=== PATIENT | male | born 2000 | race Two or more races ===

== ENCOUNTER 2020-10-11 07:05 | Emergency (ER) | payer SELFPAY ==
--- NOTE | ~2020-10-11 | CT_ITS ---
EXAMINATION: CT ABDOMEN AND PELVIS WITHOUT CONTRAST CLINICAL INFORMATION: Lower abdominal pain COMPARISON: None TECHNIQUE: Multidetector volumetric imaging was performed from the superior aspect of the liver through the pubic symphysis. Sagittal and coronal reformatted images were obtained on the technologist's workstation. This CT examination was performed using dose optimization techniques as appropriate, variously including the following: *Automated exposure control *Adjustment of mA and/or kV according to patient size (this includes techniques or standardized protocols for targeted exams where dose is matched to indication/reason for exam; i.e. extremities or head) *Use of iterative reconstruction technique DLP: 779 mGy-cm FINDINGS: LUNG BASES: The visualized lung bases are unremarkable. LIVER, GALLBLADDER, AND BILIARY TREE: The liver is normal in size, shape, and attenuation. No focal hepatic lesion or biliary ductal dilatation is present. The gallbladder is unremarkable with no evidence of radiopaque gallstones, gallbladder wall thickening, or obvious pericholecystic inflammatory changes. PANCREAS: Unremarkable. SPLEEN: Unremarkable. ADRENAL GLANDS: Unremarkable. KIDNEYS AND URETERS: The kidneys are normal in size, shape, and attenuation. No hydronephrosis, hydroureter, or calculi seen. No perinephric stranding. BLADDER: Unremarkable. GASTROINTESTINAL TRACT: Stomach is partially distended. No dilated small or large bowel loops. Nonobstructive bowel gas pattern. No evidence of colonic wall thickening or pericolonic inflammatory changes. Status post appendectomy. No free fluid or free air. ABDOMINAL WALL: No significant hernia is appreciated. LYMPH NODES: No enlarged lymph nodes seen. VASCULAR: Normal caliber aorta. PELVIC VISCERA: Within normal limits. OSSEOUS STRUCTURES: Minimal degenerative changes in the spine. CT/CT abdomen pelvis wo con IMPRESSION: No acute process is identified in the abdomen or pelvis. Cause of patient's symptoms is not evident by CT.
[2020-10-11 07:13] VITALS: BP 126/59; PULSE 80; RESP 20; TEMP 36.8; O2SAT 99; BMI 37.5
--- NOTE | 2020-10-11 07:38 | ED.ABDPAIN ---
HPI - Abdominal Pain General Chief Complaint: Abdominal Pain Stated Complaint: CONSTIPATION Time Seen by Provider: 10/11/20 07:26 Source: patient Mode of arrival: ambulatory Limitations: no limitations History of Present Illness HPI narrative: 20-year-old male history of ulcerative colitis came in for evaluation of lower abdominal pain. Lower abdominal pain started 2 days ago, describes the pain as intermittent, moderate in severity 7/10, pain mostly localized to the left lower abdomen, dull aching abdominal pain, no relieving or aggravating factor, pain is associated with diarrhea dark stool patient's think could be blood, also associated with nausea and vomiting. Patient had similar symptoms in the past when he was diagnosed with ulcerative colitis. Patient had history of appendectomy. Related Data Allergies Allergy/AdvReac Type Severity Reaction Status Date / Time No Known Allergies Allergy Verified 10/11/20 07:26 Review of Systems Review of Systems All other systems are reviewed and are negative Constitutional: Reports as per HPI and Reports no additional constitutional complaints Eyes: Reports as per HPI and Reports no additional eye complaints Reports system reviewed and no additional complaints, except as documented Cardiovascular: Reports as per HPI and Reports no additional cardiovascular complaints Respiratory: Reports as per HPI and Reports no additional respiratory complaints Gastrointestinal: Reports as per HPI and Reports no additional gastrointestinal complaints Genitourinary: Reports no additional female genitourinary complaints Musculoskeletal: Reports no additional musculoskeletal complaints Skin/Breast: Reports system reviewed and no additional complaints, except as docu Psychiatric: Reports no additional psychiatric complaints Endocrine: Reports no additional endocrine complaints Hematologic/Lymphatic: Reports no additional hematologic/lymphatic complaints Allergic/Immunologic: Reports no additional allergic/immunologic complaints Reports system reviewed and no additional complaints, except as documented and Reports Abnormal speech present Physical Exam Vital Signs: Vital Signs: Last Vital Signs Temp 98.2 F 10/11/20 07:13 Pulse 80 10/11/20 07:13 Resp 20 10/11/20 07:13 BP 126/59 L 10/11/20 07:13 Pulse Ox 99 10/11/20 07:13 Body Mass Index 37.5 Vital signs have been reviewed as appeared to be correct. Blood pressure normal. Heart rate normal. Respiration rate normal. Temperature normal. Oxygen saturation normal. Appearance: Alert. Oriented X3. No acute distress. Head: Normal external exam. Normocephalic. Atraumatic. No Prakash signs noted. No raccoon eyes noted Eyes: PERRLA. EOMI. Conjunctiva and sclera normal. Eyelids normal. ENT: TM's Normal. Pharynx normal. Uvula midline. Moist mucous membranes. No trismus noted. No drooling noted. No muffled voice noted. Neck: Normal inspection. Neck supple. FROM. No adenopathy. Thyroid Normal. No meningeal signs. No neck mass noted. CVS: Normal heart rate and rhythm. Heart sound normal. No murmurs noted. Pulses normal throughout. Respiratory: No respiratory distress. Painless inspiration. Breath sounds normal. No wheezes/rales/rhonchi noted. Chest nontender. No accessory muscle usage noted or decreased air movement noted. Abdomen: Soft, left lower quadrant tenderness, no guarding, no rebound.. Bowel sounds normal in all 4 quadrants. No distention noted. No organomegaly noted. No visible injury noted. Rectal exam: Back: No CVA tenderness. Full range of motion noted. Skin: Skin warm and dry. Normal skin color. Normal skin turgor. No rashes/lesions/lacerations noted. Extremities: No lower extremity edema. Extremities exhibit normal range of motion. Extremities nontender. Neuro: Oriented X 3. No motor deficit. No sensory deficit. Reflexes normal. Course Course Course Narrative: Assessment and plan. 20-year-old male otherwise healthy with history of ulcerative colitis presented with left lower abdominal pain and bloody diarrhea. Patient's exam/occult blood for stool/labs/CT of the abdomen pelvis were unremarkable for acute flare of colitis or any other intra-abdominal pathology. Patient appears comfortable in room at the current time. Able to tolerate p.o. intake. Will discharge the patient and follow up with his PCP/GI. MDM - Abdominal Pain Lab Data Attestation: I reviewed the patient's lab results. Result diagrams: 10/11/20 07:57 10/11/20 07:57 Labs: Lab Results 10/11/20 10/11/20 10/11/20 Range/Units 07:57 07:57 07:57 WBC 6.7 (4.8-10.8) X10*3/uL RBC 5.44 (4.60-5.80) X10*6/uL Hgb 14.3 (14.0-18.0) g/dl Hct 44.3 (42-52) % MCV 81.4 (80-98) fL MCH 26.3 L (27.0-33.0) pg MCHC 32.3 (31.0-36.0) g/dl RDW 13.1 (11.0-16.0) % Plt Count 316 (160-400) X10*3/uL MPV 11.0 (9.4-12.4) fL Immature Gran % (Auto) 0.3 (0.0-0.4) % Neut % (Auto) 51.3 (45-73) % Lymph % (Auto) 38.4 (20-40) % [place] % (Auto) 7.3 (2-11) % Eos % (Auto) 2.1 (0-4) % Baso % (Auto) 0.6 (0-2) % Lymph # (Auto) 2.6 (1.2-4.9) X10*3/uL [place] # (Auto) 0.5 (0.1-1.2) X10*3/uL Eos # (Auto) 0.1 (0.0-0.4) X10*3/uL Baso # (Auto) 0.0 (0.0-0.2) X10*3/uL Abs Immat Gran (auto) 0.02 (0.00-0.03) X10*3/uL Absolute Neuts (auto) 3.4 (2.0-8.3) X10*3/uL Absolute Nucleated RBC 0.000 (0.0-0.012) X10*3/uL Nucleated RBC % (auto) 0.0 (0.0-0.2) /100WBC Sodium 138 (135-145) mmol/L Potassium 4.3 (3.3-5.1) mmol/L Chloride 106 (96-108) mmol/L Carbon Dioxide 25 (22-29) mmol/L Anion Gap 11 L (12-20) BUN 13 (9-16) mg/dL Creatinine 1.02 (0.5-1.4) mg/dL Estim Creat Clear Calc 126.2 Estimated GFR > 60 Random Glucose 89 (60-115) mg/dL Calcium 9.3 (8.4-10.2) mg/dL Total Bilirubin 0.4 (0.0-1.0) mg/dL Direct Bilirubin < 0.2 (0.0-0.5) mg/dL AST 24 (5-37) U/L ALT 19 (0-40) U/L Alkaline Phosphatase 87 (39-117) U/L Total Protein 7.3 (6.5-8.0) g/dL Albumin 4.0 (3.5-5.0) g/dL Lipase 18 (8-78) U/L Stool Occult Blood NEGATIVE (NEGATIVE) Imaging Data CT scan - abdomen: Radiologist's impression: No acute process is identified in the abdomen or pelvis. Cause of patient's symptoms is not evident by CT. Discharge Plan Discharge Clinical Impression: Abdominal pain Patient Disposition: Home, Self-Care Instructions: Abdominal Pain (ED) Referrals: [place],[facility] [Primary Care Provider] - 2 days Stand Alone Forms: Work/School Release PMFSH Social History Social History Advance Directives: No Advance Directives Information Provided: No
[2020-10-11 08:01] LABS: MANUAL DIFF FLAG NO
[2020-10-11 08:03] LABS: Basophils Percent Auto 0.6 % (0-2); Eosinophils Absolute Auto 0.1 X10*3/uL (0.0-0.4); Eosinophils Percent Auto 2.1 % (0-4); Hematocrit 44.3 % (42-52); Hemoglobin 14.3 g/dl (14.0-18.0); Imm Gran Abs Auto 0.02 X10*3/uL (0.00-0.03); Imm Gran Pct Auto 0.3 % (0.0-0.4); Lymphocytes Absolute Auto 2.6 X10*3/uL (1.2-4.9); Lymphocytes Percent Auto 38.4 % (20-40); Mean Corpuscular HGB Conc 32.3 g/dl (31.0-36.0); Mean Corpuscular Hemoglobin 26.3 pg (27.0-33.0); Mean Corpuscular Volume 81.4 fL (80-98); Monocytes Absolute Auto 0.5 X10*3/uL (0.1-1.2); Monocytes Percent Auto 7.3 % (2-11); Neutrophils Absolute Auto 3.4 X10*3/uL (2.0-8.3); Neutrophils Percent Auto 51.3 % (45-73); Platelet Count 316 X10*3/uL (160-400); Red Blood Count 5.44 X10*6/uL (4.60-5.80); Red Cell Distribution Width 13.1 % (11.0-16.0); White Blood Count 6.7 X10*3/uL (4.8-10.8)
[2020-10-11] MEDS: Morphine Sulfate 2 MG/ML CARTRIDGE IVPUSH (08:03)
[2020-10-11 08:04] LABS: OBS Int Ctl Valid YES; OBS1 NEGATIVE (NEGATIVE)
[2020-10-11] MEDS: Ketorolac Tromethamine 30 MG/ML VIAL IVPUSH (08:04)
[2020-10-11] MEDS: ondansetron HCL 4 MG/2 ML VIAL IVPUSH (08:04)
[2020-10-11] MEDS: 0.9 % Sodium Chloride 1,000 ML 999 ML IVCONT (08:06)
[2020-10-11 08:28] LABS: Alanine Aminotransferase 19 U/L (0-40); Alkaline Phosphatase 87 U/L (39-117); Anion Gap 11 (12-20); Aspartate Amino Transferase 24 U/L (5-37); Bilirubin Direct < 0.2 mg/dL (0.0-0.5); Bilirubin Total 0.4 mg/dL (0.0-1.0); Blood Urea Nitrogen 13 mg/dL (9-16); Calcium 9.3 mg/dL (8.4-10.2); Carbon Dioxide 25 mmol/L (22-29); Chloride 106 mmol/L (96-108); Creatinine Clr Calc Pharmacy 126.2; Estimated Glomerular Filt Rate > 60; Glucose Random 89 mg/dL (60-115); Lipase 18 U/L (8-78); Potassium 4.3 mmol/L (3.3-5.1); Sodium 138 mmol/L (135-145); Total Protein 7.3 g/dL (6.5-8.0)
== END 2020-10-11 10:32 | disposition home or self-care (01) ==
PROVIDERS: Emergency Provider Emergency Medicine
DX: R10.32 Left lower quadrant pain (principal); R19.7 Diarrhea, unspecified
CPT/HCPCS: 36415; 74176; 80048; 80076; 82272; 83690; 85025; 96374; 96375; 99283; 99284; J1885; J2270; J2405

== ENCOUNTER 2022-04-30 01:33 | Emergency (ER) | payer MEDICAID, SELFPAY ==
[2022-04-30 01:50] VITALS: BP 134/66; PULSE 95; RESP 16; TEMP 37; O2SAT 97; BMI 42.5
--- NOTE | 2022-04-30 02:03 | ED.EYEPROB ---
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 metal dust went to his right eye earlier today, feels increased photosensitivity and watering and redness right eye with foreign body sensation no other injuries Related Data Previous Rx's Medication Instructions Recorded tobramycin 0.3 % eye drops 1 drp ophthalmic (eye) Q4H #5 mL 04/30/22 Allergies Allergy/AdvReac Type Severity Reaction Status Date / Time No Known Allergies Allergy Verified 04/30/22 01:47 Review of Systems Review of Systems: Yes all other systems are reviewed and are negative [facility] Social History Social History Smoked in Last 30 Days: No Use of substances other than those prescribed or required for medical reasons: No Advance Directives: No Advance Directives Information Provided: Yes Physical Exam Vital Signs: Vital Signs: Last Vital Signs Temp 98.6 F 04/30/22 01:50 Pulse 95 04/30/22 01:50 Resp 16 04/30/22 01:50 BP 134/66 04/30/22 01:50 Pulse Ox 97 04/30/22 01:50 O2 Del Method 04/30/22 01:50 BMI result Body Mass Index 42.5 Eyes: General: appearance normal, both eyes and all related structures Visual Amador: normal visual amador by confrontation Conjunctivae: conjunctivae normal Sclerae: sclerae normal Corneas: corneas abnormal and fluorescein used EOM: EOMs intact bilaterally Direct Ophthalmoscopy: anterior chamber normal Eyes/upper lids images: 1. Metal dust at 03:00 o'clock position Medications Administered Discontinued Medications Generic Name Dose Route Start Last Admin Trade Name Freq PRN Reason Stop Dose Admin Fluorescein Sodium 1 strip 04/30/22 02:04 04/30/22 02:27 Fluorescein Sodium Strip EYE-RIGHT 04/30/22 02:05 1 strip ONCE ONE Administration Tetracaine HCl 3 drop 04/30/22 02:04 04/30/22 02:28 Tetracaine Hcl/Pf 0.5% Oph Tammi 4 Ml Drops EYE-RIGHT 04/30/22 02:05 3 drop ONCE ONE Administration Tobramycin Sulfate 2 drop 04/30/22 02:04 04/30/22 02:27 Tobramycin Sulfate 0.3% Tammi Op 5 Ml Btl EYE-RIGHT 04/30/22 02:05 2 drop ONCE ONE Administration Procedures FB Removal Eye Time Out performed: Yes Location: eye (R) Topical anesthetic used: tetracaine Foreign body: metal Evidence of corneal penetration: Yes Technique: needle Procedure performed under: direct visualization with magnification Post-procedure medication: ophthalmic antibiotic and topical anesthetic Patient tolerated procedure: well Discharge Plan Discharge Clinical Impression: Corneal abrasion, Acute foreign body of right cornea Patient Disposition: Home, Self-Care Instructions: Corneal Abrasion (ED), Eye Foreign Body (ED) Additional Instructions: Care as advised Antibiotic eyedrops 1 drop every 4-6 hour until better Prescriptions: New tobramycin 0.3 % drops 1 drp ophthalmic (eye) Q4H Qty: 5 0RF Interventions: ED Discharge Assessment Last Done: 04/30/22 02:50 Discharge Date/Time: 04/30/22 02:51
[2022-04-30] MEDS: Tobramycin Sulfate 0.3% Sol Op 5 ML BTL 2 DROP EYE-RIGHT (02:27)
[2022-04-30] MEDS: Fluorescein Sodium STRIP 1 STRIP EYE-RIGHT (02:27)
[2022-04-30] MEDS: Tetracaine HCl/PF 0.5% Oph Sol 4 ML DROPS 3 DROP EYE-RIGHT (02:28)
--- NOTE | 2022-04-30 02:38 | PC.NURSE ---
pt medicated according to amarilis. this rn at bedside with dr rucker for removal of FO from R eye. pt tolerated well. pt resting on stretcher with lights dimmed at this time
--- NOTE | 2022-04-30 02:49 | PC.NURSE ---
pt ambulatory at discharge. pt provided with discharge packet. pt verbalized understanding of discharge plan.
--- NOTE | 2022-04-30 02:50 | PC.NURSE ---
pt reports 0/10 pain a this time
== END 2022-04-30 02:51 | disposition home or self-care (01) ==
PROVIDERS: Emergency Provider Internal Medicine
DX: T15.01XA Foreign body in cornea, right eye, initial encounter (principal); X58.XXXA Exposure to other specified factors, initial encounter
CPT/HCPCS: 65220; 99284